=== PATIENT | female | born 2000 | race Two or more races ===

== ENCOUNTER 2019-05-29 16:15 | Emergency (ER) | payer MEDICAID, OTHER ==
[~2019-05-29] VITALS: Ht 157.5 cm; Wt 47.2 kg
[2019-05-29 16:46] VITALS: BP 109/54
[2019-05-29 17:38] LABS: Basophils # (auto) 0.1 uL; Basophils % (auto) 0.9 % (0.0-2.0); Eosinophils # (auto) 0.1 uL; Eosinophils % (auto) 1.7 % (0.0-7.0); Hematocrit 40.4 % (36.0-46.0); Hemoglobin 13.7 g/dL (12.2-16.2); Lymphocytes # (auto) 1.5 uL; Lymphocytes % (auto) 23.9 % (10.0-50.0); Mean Corpuscular Hemoglobin 31.9 pg (28.0-32.0); Mean Corpuscular Hgb Conc. 33.8 g/dL (32.0-36.0); Mean Corpuscular Volume 94.2 fL (80.0-100.0); Monocytes # (auto) 0.7 uL; Monocytes % (auto) 11.3 % (0.0-12.0); Neutrophils # (auto) 3.8 uL; Neutrophils % (auto) 62.2 % (37.0-80.0); Nucleated Red Blood Cells % 2.8 %; Platelet Count (auto) 259 10^3/uL (140-450); Red Blood Cells 4.29 10^6/uL (4.0-5.20); Red Cell Distribution Width 12.8 % (11.8-14.3); White Blood Cell 6.2 10^3/uL (4.4-10.8)
[2019-05-29 17:54] LABS: Albumin 3.8 g/dL (3.4-5.0); Anion Gap 4 (5-15); Blood Urea Nitrogen 15 mg/dL (7-18); Calcium 8.8 mg/dL (8.5-10.1); Carbon Dioxide 28 mmol/L (21-32); Chloride 108 mmol/L (98-107); Glucose 85 mg/dL (74-106); Potassium 4.5 mmol/L (3.5-5.1); Sodium 140 mmol/L (136-145)
[2019-05-29 17:59] LABS: Alanine Aminotransferase 15 U/L (13-56); Alkaline Phosphatase 72 U/L (45-117); Aspartate Aminotransferase 15 U/L (15-37); BUN/Creatinine Ratio 22.7; Bilirubin, Total 0.7 mg/dL (0.2-1.0); GFR African American 147 mL/min; GFR Non-African American 121 mL/min; Total Protein 7.2 g/dL (6.4-8.2)
== END 2019-05-29 18:56 | disposition home or self-care (01) ==
LOC: ER 16:15
DX: R07.89 Other chest pain (principal)
CPT/HCPCS: 36415; 80053; 84443; 84484; 85025; 93005

== ENCOUNTER 2019-07-12 22:02 | Emergency (ER) | payer MEDICAID ==
[~2019-07-12] VITALS: Ht 157.5 cm; Wt 49.0 kg
[2019-07-12 22:56] LABS: Urine Bacteria NONE SEEN /hpf (None Seen); Urine Blood Negative /uL (Negative); Urine Specific Gravity 1.026 (1.001-1.035); Urine WBC 2 /hpf (0 - 5)
[2019-07-13 03:01] VITALS: BP 99/62
== END 2019-07-13 04:06 | disposition home or self-care (01) ==
LOC: ER 22:02
DX: M94.0 Chondrocostal junction syndrome [Tietze] (principal); R07.89 Other chest pain
CPT/HCPCS: 71046; 81001

== ENCOUNTER 2020-02-06 17:00 | Emergency (ER) | payer MEDICAID ==
[~2020-02-06] VITALS: Ht 157.5 cm; Wt 46.7 kg
[2020-02-06 17:26] VITALS: BP 92/60
[2020-02-06 18:26] LABS: Urine Bacteria NONE SEEN /hpf (None Seen); Urine Blood Negative /uL (Negative); Urine Mucus FEW (None Seen); Urine Specific Gravity 1.022 (1.001-1.035); Urine WBC <1 /hpf (0 - 5)
== END 2020-02-06 20:30 | disposition left against medical advice (07) ==
LOC: ER 17:00
DX: B37.3 Candidiasis of vulva and vagina (principal)
CPT/HCPCS: 81001; 81025

== ENCOUNTER 2021-07-27 22:01 | Emergency (ER) | payer MEDICAID ==
[~2021-07-27] VITALS: Ht 157.5 cm; Wt 48.1 kg
[2021-07-27 22:05] VITALS: BP 107/62
[2021-07-27] MEDS ORDERED: KETOROLAC TROMETH 30 MG/ML 1ML VIAL IM ONE (23:45)
[2021-07-28] MEDS ORDERED: IBUP800T27 PO (00:07)
[2021-07-28] MEDS ORDERED: PRED20TA2 PO (00:07)
== END 2021-07-28 00:15 | disposition home or self-care (01) ==
LOC: ER 22:04
DX: L72.3 Sebaceous cyst (principal); Z79.1 Long term (current) use of non-steroidal anti-inflammatories (NSAID); Z79.899 Other long term (current) drug therapy
CPT/HCPCS: 96372; 99283; J1885

== ENCOUNTER 2023-03-30 16:31 | Emergency (ER) | payer MEDICAID ==
[~2023-03-30] VITALS: Ht 157.5 cm; Wt 51.2 kg
[~2023-03-30 16:31] MED LIST: IBUP-1456 PO; PRED20TA2 PO
[2023-03-30 17:31] LABS: Urine Bacteria NONE SEEN /hpf (None Seen); Urine Blood Negative /uL (Negative); Urine Clarity Clear (Clear); Urine Color Yellow (Yellow); Urine Mucus FEW (None Seen); Urine Protein, UAD TRACE (Negative); Urine Specific Gravity 1.036 (1.001-1.035); Urine Urobilinogen Normal (Negative); Urine WBC 1 /hpf (0 - 5)
[2023-03-30 18:26] VITALS: BP 110/72; PULSE 68; RESP 18; TEMP 97.8; O2SAT 95
[2023-03-30 19:29] LABS: Vaginal Trichomonas Not Present
[2023-03-30 19:30] LABS: Vaginal Bacteria Moderate; Vaginal Clue Cells None Seen; Vaginal Epithelial Cells Few
[2023-03-30] MEDS ORDERED: [UNRECOGNIZED DRUG - OTHER] EX (20:27)
[2023-03-30] MEDS ORDERED: cefTRIAXone SOD 1,000 MG VL IM ONE (20:30)
[2023-03-30] MEDS ORDERED: AZITHROMYCIN 250 MG TAB PO ONE (20:30)
[2023-04-01 07:07] LABS: RPR Non Reactive (Non Reactive)
[2023-04-02 00:06] LABS: Chlamydia Trachomatis, NAA Negative (Negative); Neisseria gonorrhoeae, NAA Negative (Negative)
== END 2023-03-30 21:25 | disposition home or self-care (01) ==
LOC: ER 16:31
DX: N76.0 Acute vaginitis (principal); Z32.02 Encounter for pregnancy test, result negative; Z20.2 Contact with and (suspected) exposure to infections with a predominantly sexual mode of transmission
CPT/HCPCS: 81001; 81025; 86592; 87210; 87491; 87591; 96372; 99283; J0696